=== PATIENT | female | born 1985 | race Caucasian/White ===

== ENCOUNTER 2016-08-11 12:34 | Emergency (ER) | payer OTHER ==
--- NOTE | ~2016-08-11 | CR94 ---
[facility]. [facility] A Service of [facility] & [facility] RADIOLOGY TEXT RESULTS PATIENT: MURALI ESCOBEDO LOCATION: SED : 87 UNIT #: [id number] AGE: [address]: Deborah Malik SEX: F ORDER DR: [id number] [place] [id number] E MR#: [id number] Acc #: [id number] NAME: MURALI ESCOBEDO : 1985 SEX: F STUDY DATE/TIME: 08/11/2016 12:58 UNIT: SED ROOM: STUDY DESCRIPTION: CR Elbow Min 3 Views Rt Attending Physician: Deborah Malik P.A.-C. Ordering Physician: Deborah Malik P.A.-C. Primary Care Physician: Jhon Cantu III, M.D. MEDICAL IMAGING REPORT This report is preliminary unless electronic signature is present. EXAM Right elbow 08/11/2016. INDICATIONS Abdominal pain after injury last night while roughhousing. FINDINGS 3 views of the right elbow were obtained. No fracture or malalignment is seen. There is no joint effusion. IMPRESSION Negative right elbow. Dictated by... Jhon Madrid Jr., M.D. THIS IS AN ELECTRONICALLY VERIFIED REPORT Jhon Madrid Jr., M.D. at 08/11/2016 6:34 PM YOSI/arlyn TD: 08/11/2016 16:23 JOB #: [id number] MEDICAL IMAGING REPORT Page 1 of 1
[~2016-08-11 12:34] MED LIST: ALBUTEROL17 GM INH; CLONAZEPAM0.5 MG PO; NAPROSYN500 MG PO; ORTHO TRI-7 DAYSX 3 PO; PREDNISONE PO; URISPAS100 M1 PO; VOLTAREN75 MG PO; ZITHROMAX PO; ZOLOFT; ZYRTEC PO
[2016-08-11] MEDS ORDERED: MOTRIN400 MG PO (12:38)
== END 2016-08-11 13:25 | disposition home or self-care (01) ==
LOC: SED 12:34
DX: M25.521 Pain in right elbow (principal); F41.9 Anxiety disorder, unspecified
CPT/HCPCS: 29260; 73080; 99283